=== PATIENT | female | born 1955 ===

== ENCOUNTER 2017-03-20 11:25 | Emergency (ER) | payer OTHER ==
[2017-03-20 11:46] VITALS: BMI 28.3
--- NOTE | 2017-03-20 12:36 | RAD ---
PROCEDURE: Radiographs of the Left Shoulder HISTORY: Pain COMPARISON: None available. FINDINGS: BONES: No acute displaced fracture. The distal clavicle and underlying ribs appear intact. JOINTS: No acute dislocation. Calcific tendonitis, left shoulder joint. SOFT TISSUES: Soft tissues appear unremarkable. No evidence of radiopaque foreign body. IMPRESSION: Evidence of calcific tendinitis.
--- NOTE | 2017-03-20 12:49 | C.PDOC ---
History Of Present Illness Pt c/o left shoulder region pain. Denies injury. Time Seen by Provider: 03/20/17 11:58 Chief Complaint (Nursing): Upper Extremity Problem/Injury History Per: Patient Onset/Duration Of Symptoms: Days (3) Current Symptoms Are (Timing): Still Present Quality: "Pain" Severity: Moderate Exacerbating Factor(s): Strenuous Use Of Affected Area, Movement Additional History Per: Prior Records Past Medical History Reviewed: Historical Data, Nursing Documentation, Vital Signs Vital Signs: Last Vital Signs Temp 97.7 F 03/20/17 11:46 Pulse 80 03/20/17 11:46 Resp 18 03/20/17 11:46 BP 127/87 03/20/17 11:46 Pulse Ox 99 03/20/17 11:46 - Medical History PMH: HTN Family History: States: Unknown Family Hx - Social History Hx Tobacco Use: No Hx Alcohol Use: No Hx Substance Use: No - Immunization History Hx Tetanus Toxoid Vaccination: No Hx Influenza Vaccination: No Hx Pneumococcal Vaccination: No Review Of Systems Except As Marked, All Systems Reviewed And Found Negative. Constitutional: Negative for: Fever, Weakness Cardiovascular: Negative for: Chest Pain Respiratory: Negative for: Shortness of Breath Gastrointestinal: Negative for: Vomiting, Abdominal Pain Musculoskeletal: Positive for: Shoulder Pain (left). Negative for: Neck Pain Skin: Negative for: Rash Neurological: Negative for: Weakness, Numbness Physical Exam - Physical Exam Appears: Non-toxic, No Acute Distress Skin: Normal Color, Warm, Dry, No Rash Head: Atraumatic, Normacephalic Eye(s): bilateral: Normal Inspection, PERRL, EOMI Neck: Normal ROM, No Midline Cervical Tenderness, No Paracervical Tenderness, No Step Off Deformity, Supple Chest: Symmetrical, No Deformity Cardiovascular: Rhythm Regular Respiratory: Normal Breath Sounds, No Accessory Muscle Use Gastrointestinal/Abdominal: Soft, No Tenderness Extremity: Tenderness (nonspecific left shoulder), No Deformity, No Swelling Extremity: Left: Limited ROM To Joint (Shoulder, due to pain.) Pulses: Left Radial: Normal Neurological/Psych: Oriented x3, Normal Motor, Normal Sensation ED Course And Treatment O2 Sat by Pulse Oximetry: 99 Pulse Ox Interpretation: Normal - Other Rad Left shoulder x-rays X-Ray: Viewed By Me, Read By Radiologist Interpretation: IMPRESSION: Evidence of calcific tendinitis. Reassessment Condition: Improved Disposition Counseled Patient/Family Regarding: Studies Performed, Diagnosis, Need For Followup, Rx Given - Disposition Referrals: Navjot Avendano MD [Staff Provider] - Disposition: HOME/ ROUTINE Disposition Time: 12:51 Condition: IMPROVED Additional Instructions: Follow up with your doctor for further evaluation and treatment. Return to the ER if you develop redness, swelling, worsening of symptoms or if you have any other concerns. Prescriptions: Naproxen [Naprosyn Tab] 375 mg PO BID PRN #20 tab PRN Reason: Pain, Moderate (4-7) Instructions: Calcific Tendinitis (ED) Forms: [employer] (Belarusian) Print Language: DUTCH - Clinical Impression Clinical Impression: Calcific tendinitis of left shoulder region
[2017-03-20 13:02] VITALS: BP 113/77; PULSE 71; RESP 20; TEMP 97.6; O2SAT 100
== END 2017-03-20 13:01 | disposition home or self-care (01) ==
LOC: C.ER 11:25
DX: M75.32 Calcific tendinitis of left shoulder (principal)
CPT/HCPCS: 73030; 96372; 99284; J1885

== ENCOUNTER 2018-09-27 01:28 | Emergency (ER) | payer OTHER ==
[2018-09-27 01:28] VITALS: BMI 28.3
[2018-09-27 01:58] VITALS: RESP 18
[2018-09-27] MEDS ORDERED: Sodium Chloride 0.9% 1,000 ML IV ONE (02:02)
--- NOTE | 2018-09-27 02:03 | C.PDOC ---
History Of Present Illness 63 y/o female presents to the ED complaining of nausea, vomiting, abdominal pain and headache since earlier today. Symptoms have been worsening over the last couple hours. Patient states she took Tylenol at home with no relief. Otherwise she denies any fever, chills, cough, congestion, diarrhea, or urinary complaints. Time Seen by Provider: 09/27/18 02:00 Chief Complaint (Nursing): Abdominal Pain History Per: Patient History/Exam Limitations: no limitations Onset/Duration Of Symptoms: Hrs Current Symptoms Are (Timing): Worse Severity: Mild Pain Scale Rating Of: 4 Location Of Pain/Discomfort: Epigastric Radiation Of Pain To:: None Quality Of Discomfort: "Pain" Associated Symptoms: Nausea, Vomiting Alleviating Factors: None Past Medical History Reviewed: Historical Data, Nursing Documentation, Vital Signs Vital Signs: Last Vital Signs Temp 100 F H 09/27/18 01:54 Pulse 90 09/27/18 01:54 Resp 18 09/27/18 01:54 BP 107/71 09/27/18 01:54 Pulse Ox 97 09/27/18 01:54 - Medical History PMH: HTN Denies: Chronic Kidney Disease Surgical History: Family History: States: Unknown Family Hx - Social History Hx Tobacco Use: No Hx Alcohol Use: No Hx Substance Use: No - Immunization History Hx Tetanus Toxoid Vaccination: No Hx Influenza Vaccination: No Hx Pneumococcal Vaccination: No Review Of Systems Constitutional: Negative for: Fever, Chills Eyes: Negative for: Vision Change Cardiovascular: Negative for: Chest Pain Respiratory: Negative for: Cough, Shortness of Breath Gastrointestinal: Positive for: Nausea, Vomiting, Abdominal Pain. Negative for: Diarrhea Genitourinary: Negative for: Dysuria, Frequency Neurological: Positive for: Headache. Negative for: Weakness, Numbness Physical Exam - Physical Exam Appears: Non-toxic, No Acute Distress Skin: Warm, Dry Head: Normacephalic Eye(s): bilateral: Normal Inspection Oral Mucosa: Moist Neck: Trachea Midline, Supple Chest: Symmetrical Cardiovascular: Rhythm Regular Respiratory: No Rales, No Rhonchi, No Wheezing Gastrointestinal/Abdominal: Soft, Tenderness (Mid-epigastric tenderness), No Guarding, No Rebound Back: No CVA Tenderness Extremity: Bilateral: Atraumatic, Normal ROM Pulses: Left Dorsalis Pedis: Normal, Right Dorsalis Pedis: Normal Neurological/Psych: Oriented x3, Normal Cognition, Normal Cranial Nerves, Other (No focal deficits) Gait: Steady ED Course And Treatment - Laboratory Results Result Diagrams: 09/27/18 02:26 09/27/18 02:26 O2 Sat by Pulse Oximetry: 97 (RA) Pulse Ox Interpretation: Normal Progress Note: Labs ordered and reviewed. Patient given 1L IV fluids, 4 mg IV Zofran, and 40 mg IV protonix. Reevaluation Time: 04:28 Reassessment Condition: Improved Medical Decision Making Medical Decision Making: Upon provider reevaluation patient is feeling better, is medically stable, and requires no further treatment in the ED at this time. Patient will be discharged home with Rx for flagyl, zofran . Counseling was provided and all questions were answered regarding diagnosis and need for follow up with dr avendano. There is agreement to discharge plan. Return if symptoms persist or worsen. Disposition Counseled Patient/Family Regarding: Studies Performed, Diagnosis, Need For Followup, Rx Given - Disposition Referrals: Navjot Avendano MD [Primary Care Provider] - Disposition: HOME/ ROUTINE Disposition Time: 02:02 Condition: FAIR Additional Instructions: Por favor regrese si los sntomas recurren. Prescriptions: Metronidazole [Flagyl] 500 mg PO TID #21 tablet Ondansetron ODT [Zofran ODT] 1 odt PO BID PRN #6 odt PRN Reason: Nausea/Vomiting Instructions: Acute Abdomen (Belly Pain), Adult (DC), Nausea and Vomiting, Adult (DC) Forms: [facility] (Tajik) Print Language: JAMAICAN - Clinical Impression Clinical Impression: Abdominal pain, Nausea, Vomiting, Colitis - Scribe Statement The provider has reviewed the documentation as recorded by the Luca Caro Provider Attestation: All medical record entries made by the Luca were at my direction and personall y dictated by me. I have reviewed the chart and agree that the record accurately reflects my personal performance of the history, physical exam, medical decision making, and the department course for this patient. I have also personally directed, reviewed, and agree with the discharge instructions and disposition.
[2018-09-27 02:30] LABS: BASO % 0.3 % (0.0-2.0); HEMOGLOBIN 11.3 g/dL (11.0-16.0); LYMPH # 0.5 K/uL (1.0-4.3); LYMPH % 3.8 % (20.0-40.0); MEAN CELL VOLUME 90.6 fL (81.0-99.0); MEAN CORPUSCULAR HGB CONC 33.1 g/dL (33.0-37.0); MEAN PLATELET VOLUME 7.9 fL (7.2-11.7); MONO # 0.4 K/uL (0.0-0.8); NEUT # 12.4 K/uL (1.8-7.0); NEUT % 92.9 % (50.0-75.0); PLATELET COUNT 252 K/uL (130-400); RBC 3.75 Mil/uL (3.80-5.20); WHITE BLOOD COUNT 13.4 K/uL (4.8-10.8)
[2018-09-27 02:35] LABS: INR 1.2; PROTHROMBIN TIME 13.2 SECONDS (9.7-12.2)
[2018-09-27 02:53] LABS: ANISOCYTOSIS SLIGHT; BANDS 2 % (0-2); LYMPHOCYTE 6 % (20-40); MONOCYTE 5 % (0-10); NEUTROPHIL 87 % (50-75); PLATELET ESTIMATE NORMAL (NORMAL); POIKILOCYTOSIS SLIGHT; TOTAL CELLS COUNTED 100
[2018-09-27 02:55] LABS: BLOOD UREA NITROGEN 17 mg/dL (7-17); CALCIUM 9.5 mg/dl (8.6-10.4); GFR NON-AFRICAN AMERICAN > 60; LIPASE 50 U/L (23-300)
[2018-09-27 03:03] LABS: ALB/GLOB RATIO 1.4 (1.0-2.1); ALBUMIN 4.2 g/dL (3.5-5.0); ALT/SGPT 16 U/L (9-52); AST/SGOT 43 U/L (14-36)
[2018-09-27] MEDS ORDERED: Iodixanol 320 MG/ML 100 ML BOTTLE IV ONE (03:05)
[2018-09-27 03:32] LABS: SQUAMOUS EPITHIAL 1 /hpf (0-5); URINE BILIRUBIN NEGATIVE (NEGATIVE); URINE BLOOD NEGATIVE (NEGATIVE); URINE CLARITY Clear (Clear); URINE COLOR Yellow (YELLOW); URINE GLUCOSE (UA) NORMAL (Normal); URINE LEUKOCYTE ESTERASE NEG Leu/uL (Negative); URINE PROTEIN NEGATIVE (NEGATIVE); URINE UROBILINOGEN NORMAL mg/dL (0.2-1.0)
[2018-09-27] MEDS ORDERED: metroNIDAZOLE IV 500 mg/100 ml 500 MG/100 ML BAG IVPB SCH (04:30)
[2018-09-27 04:54] VITALS: BP 108/66; PULSE 95; TEMP 100.7; O2SAT 98
--- NOTE | 2018-09-27 11:33 | CT ---
Date of service: 09/27/2018 PROCEDURE: CT Abdomen and Pelvis with contrast HISTORY: abd pain, n/v/ COMPARISON: Images from CT abdomen and pelvis without IV contrast performed 10/05/10 TECHNIQUE: Contrast dose: 100 mL Visipaque 320 IV Radiation dose: Total exam DLP = 455.71 mGy-cm. This CT exam was performed using one or more of the following dose reduction techniques: Automated exposure control, adjustment of the mA and/or kV according to patient size, and/or use of iterative reconstruction technique. FINDINGS: LOWER THORAX: No visible consolidation, pleural effusion, or pneumothorax. Small hiatal hernia. LIVER: Hepatic cysts as well as too small to characterize hepatic hypodensities which statistically likely represent hemangiomas or cysts. GALLBLADDER AND BILE DUCTS: Unremarkable. PANCREAS: Fatty atrophy of the pancreas. SPLEEN: Unremarkable. ADRENALS: Unremarkable. KIDNEYS AND URETERS: The kidneys enhance symmetrically. No hydronephrosis or obstructing calculus identified. VASCULATURE: No aortic aneurysm. No atherosclerotic calcification or mural plaque present. BOWEL: Stomach is nondistended. Gastric wall appears thickened. Lack of oral contrast limits evaluation for bowel pathology. Bowel loops appear within normal limits of caliber without evidence of obstruction. Marked mucosal thickening of the colon appears compatible with colitis. APPENDIX: The appendix appears within normal limits of caliber. No secondary signs of acute appendicitis. PERITONEUM: No significant free fluid. No definite free air. LYMPH NODES: Subcentimeter mesenteric lymph nodes. Subtle inflammatory stranding of the mesenteric. BLADDER: Under distention of the urinary bladder, otherwise unremarkable. REPRODUCTIVE: The uterus is present. BONES: No acute osseous abnormality is detected. OTHER FINDINGS: None. IMPRESSION: Marked colonic wall thickening appears compatible with colitis. Correlate for infectious/inflammatory etiologies. Mild gastric wall thickening may be seen in the setting of gastritis. Sub cm mesenteric lymph nodes in inflammatory stranding; correlate for mesenteric adenitis. Numerous hepatic cysts as well as too small to characterize hepatic hypodensities which statistically likely represent hemangiomas or cysts. Preliminary impression was provided by [employer].
== END 2018-09-27 04:55 | disposition home or self-care (01) ==
LOC: C.ER 01:28 → SUPCPDRO 01:28 → C.ER 04:55
DX: K52.9 Noninfective gastroenteritis and colitis, unspecified (principal); R11.2 Nausea with vomiting, unspecified; R10.9 Unspecified abdominal pain; I10 Essential (primary) hypertension
CPT/HCPCS: 74177; 80053; 81001; 83690; 85025; 85610; 85730; 96374; 96375; 99284; C9113; J2405; J7030; Q9967